=== PATIENT | female | born 1945 | race Caucasian/White ===

== ENCOUNTER 2018-06-02 15:04 | Outpatient (CLI) | payer MEDICARE ==
--- NOTE | 2018-06-02 16:34 | ULT ---
PELVIC ULTRASOUND: 06/02/18 HISTORY: Vaginal bleeding. Real time imaging of the pelvis was obtained transabdominally. This shows a normal sized uterus which measures 2.1 x 2.5 x 6.3 cm. There is fluid within the endometrial cavity. The fluid is as much as 7 mm in thickness. The right ovary is normal in size and appearance. The left ovary is never visualized. DOPPLER EVALUATION WITH SPECTRAL ANALYSIS: Normal flow is shown to the right ovary. IMPRESSION: 1. Fluid within the endometrial canal. No fibroids are identified or any type of mass. 2. The left ovary is not visualized. The right ovary is normal in appearance. POS: OFF
== END 2018-06-02 15:05 | disposition home or self-care (01) ==
LOC: BICULT 15:04
PROVIDERS: ATTEND Family Medicine
DX: N93.9 Abnormal uterine and vaginal bleeding, unspecified (principal)
CPT/HCPCS: 76856

== ENCOUNTER 2021-07-04 11:44 | Outpatient (CLI) | payer MEDICARE | END 2021-07-04 11:45 | disposition home or self-care (01) | LOC: CT 11:44 | PROVIDERS: ATTEND Neurological Surgery | DX: M48.56XA Collapsed vertebra, not elsewhere classified, lumbar region, initial encounter for fracture (principal); M47.816 Spondylosis without myelopathy or radiculopathy, lumbar region | CPT/HCPCS: 72131 ==